=== PATIENT | female | born 1940 | race Caucasian/White ===

== ENCOUNTER 2020-08-29 12:59 | Emergency (ER) | payer MEDICARE, SELFPAY ==
--- NOTE | 2020-08-29 13:06 | ED.GENADULT ---
HPI - General Adult General Chief complaint: Weakness Stated complaint: Feeling Weak Time Seen by Provider: 08/29/20 13:05 Source: patient, family and RN notes reviewed History of Present Illness HPI narrative: Patient is a 79-year-old female who presents the urgent care with her friend with complaints of weakness. Patient states that she has this happen at least once a year where she wakes up extremely weak, sleeps it off, and then feels better the next day . Patient states that she has hypoglycemia and has no treatment daily for it and does not use a glucometer at home to check her blood sugars. Patient states that she did try to eat something to help reverse that and she has felt better this afternoon . Denies of any chest pain or shortness of breath. Denies of any upper respiratory issues. Patient recently had her memory pills of 10 mg such as Namenda and donezapil . Patient did not call her doctor prior to her arrival. No other acute complaints. Patient is ambulating without difficulty. Patient aware of the plan of care. Some parts of this dictation were generated by voice recognition software and may contain typographical and/or grammatical inaccuracies. Related Data Home Medications Medication Instructions Recorded Confirmed acetaminophen [Tylenol 8 Hour] 650 mg PO Q8H 08/29/20 08/29/20 aluminm,mag kjo-evmauhy-xbmjvn 600 mg PO DAILY 08/29/20 08/29/20 amlodipine 5 mg PO DAILY 08/29/20 08/29/20 atenolol 25 mg PO DAILY 08/29/20 08/29/20 atorvastatin 10 mg PO DAILY 08/29/20 08/29/20 cholecalciferol (vitamin D3) 10 mcg PO DAILY 08/29/20 08/29/20 [Vitamin D3] donepezil 10 mg PO DAILY 08/29/20 08/29/20 glucosamine-chondroitin 30 ml PO DAILY 08/29/20 08/29/20 memantine 10 mg PO DAILY 08/29/20 08/29/20 pantoprazole 40 mg PO DAILY 08/29/20 08/29/20 Allergies Allergy/AdvReac Type Severity Reaction Status Date / Time Macrolide Antibiotics Allergy Unknown Verified 08/29/20 13:36 Penicillins Allergy Unknown Verified 08/29/20 13:35 Sulfa (Sulfonamide Allergy Unknown Verified 08/29/20 13:34 Antibiotics) codeine AdvReac Unknown Verified 08/29/20 13:35 NSAIDS (Non-Steroidal AdvReac Unknown Verified 08/29/20 13:35 Anti-Inflamma ketolides Allergy Unknown Uncoded 08/29/20 13:37 Review of Systems Review of Systems: Narrative: CONSTITUTIONAL: Denies fever, chills, or sweats. EYES: Denies visual changes, redness, or discharge. ENT: Denies rhinorrhea, congestion, sore throat, or otalgia. CARDIOVASCULAR: Denies chest pain, palpitations, or edema. RESPIRATORY: Denies cough or dyspnea. GASTROINTESTINAL: Denies abdominal pain, nausea, vomiting, or diarrhea. GENITOURINARY: Denies dysuria or hematuria. SKIN: Denies rash or itching. MUSCULOSKELETAL: Denies back pain, joint pain, or myalgia. NEUROLOGIC: Denies headache, numbness. Reports of weakness All other systems reviewed are negative, except as documented in HPI. PMFSH Comments At the time of my signature, I reviewed and agree with the nursing past medical, surgical, social, and family history. There is no relevant family history pertinent to the patient complaint. Exam Narrative: Exam Narrative: GENERAL: This is a well-nourished, well-developed patient, in no apparent distress. HEAD: normocephalic, atraumatic. EYES: PERRL. Sclera clear/white. Vision is grossly intact. EARS: External ears normal NOSE: External nose normal with no obvious nasal discharge, nares without redness, no rhinorrhea. THROAT: Mucous membranes moist NECK: Neck supple, non-tender without lymphadenopathy, masses or thyromegaly. CARDIOVASCULAR: Regular rate and rhythm RESPIRATORY: Clear to auscultation. Breath sounds equal bilaterally. No wheezes, rales, or rhonchi. SKIN: warm, intact with no suspicious lesions or rash, good texture and turgor. NEURO: awake, alert, and oriented to person, place and time. There were no obvious focal neurologic abnormalities. Negative for any one-sided deficits
[2020-08-29 13:15] VITALS: BP 127/59; PULSE 58; RESP 16; TEMP 37.5; O2SAT 99
[2020-08-29 13:28] LABS: Glucose Point of Care 113 mg/dl (65-105)
== END 2020-08-29 13:55 | disposition home or self-care (01) ==
PROVIDERS: Emergency Provider Nurse Practitioner Family; PCP Internal Medicine
DX: N39.0 Urinary tract infection, site not specified (principal); I48.91 Unspecified atrial fibrillation; E78.00 Pure hypercholesterolemia, unspecified; I10 Essential (primary) hypertension; M19.90 Unspecified osteoarthritis, unspecified site
CPT/HCPCS: 81003; 82948; 87086; 99213; G0463